=== PATIENT | female | born 1975 | race Two or more races ===

== ENCOUNTER 2021-07-02 01:42 | Emergency (ER) | payer OTHER ==
[~2021-07-02] VITALS: Ht 157.5 cm; Wt 49.9 kg
[2021-07-02] MEDS ORDERED: PEPCID AC20 MG PO (08:32)
[2021-07-02] MEDS ORDERED: EPIPEN 2-P0.3 MG/0.3 IM (08:32)
[2021-07-02] MEDS ORDERED: MEDROLPACK PO (08:32)
[2021-07-02] MEDS ORDERED: BENADRYL ALLERG25 MG PO (08:32)
== END 2021-07-02 08:39 | disposition home or self-care (01) ==
LOC: ER 01:42
DX: T78.3XXA Angioneurotic edema, initial encounter (principal); Z91.012 Allergy to eggs; Z91.048 Other nonmedicinal substance allergy status

== ENCOUNTER → 2024-03-29 | Emergency (ER) | payer OTHER ==
[~2024-03-29] VITALS: Ht 162.6 cm; Wt 68.9 kg
[~2024-03-29] MED LIST: BENADRYL ALLERG25 MG PO; EPIPEN 2-P0.3 MG/0.3 IM; MEDROLPACK PO; PEPCID AC20 MG PO
== END | disposition left against medical advice (07) ==
LOC: ER 15:46
DX: Z53.21 Procedure and treatment not carried out due to patient leaving prior to being seen by health care provider (principal)